=== PATIENT | female | born 1990 | race Caucasian/White ===

== ENCOUNTER 2018-03-23 20:51 | Outpatient (CLI) | payer OTHER ==
[~2018-03-23] VITALS: Ht 167.6 cm; Wt 84.8 kg
[~2018-03-23 20:51] MED LIST: KEFLEX500 MG PO; Keflex PO; Motrin PO; NATALCARE RX1 TABLET PO; NOHOMEMEDS; NORVASC5 MG PO; PRILOSEC40 MG PO; Percocet 5/325,Endoc PO; TRAMADOL HCL50 MG PO; ZOFRAN ODT4 MG PO
[2018-03-23] MEDS ORDERED: ALDOMET250 MG PO (21:25)
[2018-03-23 21:27] VITALS: BP 141/87
[2018-03-23] MEDS ORDERED: CEFDINIR300 MG PO (21:29)
[2018-03-23 21:52] VITALS: BP 124/86
== END 2018-03-23 23:20 | disposition home or self-care (01) ==
LOC: LDRP-OP 20:51 → 2WEST 20:52
DX: O36.8130 Decreased fetal movements, third trimester, not applicable or unspecified (principal); Z3A.38 38 weeks gestation of pregnancy
CPT/HCPCS: 59025; G0378

== ENCOUNTER 2018-03-29 07:30 | Inpatient (IN) | payer OTHER ==
[2018-03-29] VITALS (21 sets, daily range): BP systolic 113–162; BP diastolic 66–100
[~2018-03-29] VITALS: Ht 167.6 cm; Wt 85.5 kg
[~2018-03-29 07:30] MED LIST changes: +ALDOMET250 MG PO; +CEFDINIR300 MG PO
[2018-03-29] MEDS ORDERED: ADULT ASPIRIN R81 MG PO (07:55)
[2018-03-29] MEDS ORDERED: EXPECTA PRENAT1 EACH PO (07:55)
[2018-03-29 09:26] LABS: BASOPHIL (%) 0.2 % (0-1); EOSINOPHIL (%) 0.3 % (0-5); HEMATOCRIT 33.2 % (36.0-46.0); HEMOGLOBIN 11.6 G/DL (11.9-15.5); IMMATURE GRANULOCYTE (%) 1.8 % (0.0-0.7); LYMPHOCYTE (%) 13.9 % (15-42); MCH 31.7 PG (29.0-34.0); MCHC 34.9 G/DL (30.0-36.0); MCV 90.7 FL (83-99); MONOCYTE (%) 6.8 % (3-12); PLATELET COUNT 265 K/uL (156-360); RBC DIS.WIDTH-CV 12.4 % (11.8-14.6); RBC DIS.WIDTH-SD 40.6 % (39-53); RED BLOOD COUNT 3.66 M/uL (3.80-5.20); WHITE BLOOD COUNT 14.2 K/uL (4.1-10.2)
[2018-03-29 10:12] LABS: AMPHETAMINE PRESUMPTIVE POSITIVE (500 ng/mL); BARBITURATES NEGATIVE (200 ng/mL); BENZODIAZEPINES NEGATIVE (150 ng/mL); BUPRENORPHINE NEGATIVE (10 ng/mL); COCAINE NEGATIVE (150 ng/mL); METHADONE NEGATIVE (200 ng/mL); METHAMPHETAMINE NEGATIVE (500 ng/mL); OPIATES (MORPHINE) NEGATIVE (100 ng/mL); OXYCODONE NEGATIVE (100 ng/mL); PHENCYCLIDINE NEGATIVE (25 ng/mL); PROPOXYPHENE NEGATIVE (300 ng/mL); THC CANNABINOIDS NEGATIVE (50 ng/mL); TRICYCLIC ANTIDEPRESSANTS NEGATIVE (300 ng/mL)
[2018-03-29] MEDS ORDERED: IBUPROFEN800 MG PO (17:42)
[2018-03-30 02:22] VITALS: BP 122/77
[2018-03-30 19:41] VITALS: BP 134/91
[2018-03-30 22:16] VITALS: BP 139/82
[2018-03-31 02:59] VITALS: BP 118/77
== END 2018-03-31 13:15 | disposition home or self-care (01) | DRG 774 ==
LOC: LDRP-OP 07:30 → 2WEST 07:31 → LDRP-OP 12:56 → 2WEST 17:15 → LDRP-OP 05-06 23:58
PROVIDERS: Advanced Practice Midwife
DX: O10.02 Pre-existing essential hypertension complicating childbirth (principal); O69.81X0 Labor and delivery complicated by cord around neck, without compression, not applicable or unspecified; O99.62 Diseases of the digestive system complicating childbirth; K21.9 Gastro-esophageal reflux disease without esophagitis; O99.354 Diseases of the nervous system complicating childbirth; G43.909 Migraine, unspecified, not intractable, without status migrainosus; Z79.82 Long term (current) use of aspirin; Z3A.39 39 weeks gestation of pregnancy; Z37.0 Single live birth
CPT/HCPCS: 84999; 85025; C1755; J3010; J7120